=== PATIENT | female | born 1980 | race Caucasian/White ===

== ENCOUNTER → 2019-05-05 12:19 | Outpatient (BNVA) | payer MEDICARE, MEDICAID, SELFPAY | PROVIDERS: Family Provider Family Medicine; PCP Family Medicine; Visit Provider Nurse Practitioner | DX: M51.16 Intervertebral disc disorders with radiculopathy, lumbar region (principal); M46.1 Sacroiliitis, not elsewhere classified; Z79.891 Long term (current) use of opiate analgesic | CPT/HCPCS: 99213; 99214 ==